=== PATIENT | male | born 1960 | race Caucasian/White ===

== ENCOUNTER 2022-06-15 07:36 | Outpatient (CLI) | payer OTHER | END 2022-06-15 07:37 | disposition home or self-care (01) | LOC: BICRAD 07:36 | PROVIDERS: ATTEND Chiropractor | DX: R06.02 Shortness of breath (principal) | CPT/HCPCS: 71046 ==

== ENCOUNTER 2023-09-19 08:34 | Outpatient (CLI) | payer OTHER ==
[2023-09-19] MEDS ORDERED: Iopamidol 370 76% 100 ML VIAL ONE (14:20)
== END 2023-09-19 08:35 | disposition home or self-care (01) ==
LOC: CT 08:34
PROVIDERS: ATTEND Urology
DX: R97.20 Elevated prostate specific antigen [PSA] (principal); R10.84 Generalized abdominal pain; N40.0 Benign prostatic hyperplasia without lower urinary tract symptoms; K44.9 Diaphragmatic hernia without obstruction or gangrene; N32.89 Other specified disorders of bladder; Z80.42 Family history of malignant neoplasm of prostate
CPT/HCPCS: 74178; 82565; Q9967

== ENCOUNTER 2025-09-25 09:30 | Outpatient (CLI) | payer OTHER | END 2025-09-25 09:31 | disposition home or self-care (01) | LOC: SCSMRI 09:30 | PROVIDERS: ATTEND Urology | DX: C61 Malignant neoplasm of prostate (principal) | CPT/HCPCS: 72197 ==